=== PATIENT | male | born 1985 | race Caucasian/White ===

== ENCOUNTER 2017-12-22 21:35 | Emergency (ER) | payer OTHER ==
[2017-12-22 21:46] VITALS: BP 122/82; PULSE 80; TEMP 98.7; BMI 24.4
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
== END 2017-12-22 22:58 | disposition home or self-care (01) ==
LOC: JERFT 21:35
PROC: 2W3CX1Z Immobilization of Right Lower Arm using Splint (ICD-10-PCS; principal; 2017-12-22)
DX: S62.336A Displaced fracture of neck of fifth metacarpal bone, right hand, initial encounter for closed fracture (principal); S05.12XA Contusion of eyeball and orbital tissues, left eye, initial encounter; Y04.0XXA Assault by unarmed brawl or fight, initial encounter; Y93.89 Activity, other specified; Y92.89 Other specified places as the place of occurrence of the external cause; Y99.8 Other external cause status
CPT/HCPCS: 29125; 73110-TC-LR-FY; 73130-TC-LR-FY; 73130-TC-RT-FY; 99282-25